=== PATIENT | female | born 1950 | race Native Hawaiian/Other Pacific Islander ===

== ENCOUNTER → 2017-08-31 | Outpatient (CLI) | payer MEDICARE ==
--- NOTE | 2017-08-31 13:15 | MM ---
Reason for exam: screening (asymptomatic). Last mammogram was performed 1 year and 8 months ago. History: Patient is postmenopausal. Benign excisional biopsy of the left breast, 2001. Physical Findings: A clinical breast exam by your physician is recommended on an annual basis and results should be correlated with mammographic findings. MG 3D Screening Mammo W/Cad Bilateral CC and MLO view(s) were taken. Prior study comparison: December 30, 2015, bilateral MG screening mammo w CAD. January 20, 2010, bilateral digital screening mammogram. The breast tissue is heterogeneously dense. This may lower the sensitivity of mammography. There is a stable subcentimeter right middle depth central inner mass. Benign appearing bilateral calcifications. No suspicious abnormality. No significant changes when compared with prior studies. ASSESSMENT: Benign, BI-RAD 2 RECOMMENDATION: Routine screening mammogram of both breasts in 1 year.
== END | disposition home or self-care (01) ==
LOC: RADMAMWWP 10:10
PROVIDERS: ATTEND Family Medicine
DX: Z12.31 Encounter for screening mammogram for malignant neoplasm of breast (principal)
CPT/HCPCS: 77063; 77067

== ENCOUNTER → 2018-09-04 | Outpatient (CLI) | payer MEDICARE ==
--- NOTE | 2018-09-04 14:02 | MM ---
Reason for exam: screening (asymptomatic). Last mammogram was performed 1 year ago. History: Patient is postmenopausal. Benign excisional biopsy of the left breast, 2001. Physical Findings: A clinical breast exam by your physician is recommended on an annual basis and results should be correlated with mammographic findings. MG Screening Mammo w CAD Bilateral CC and MLO view(s) were taken. Prior study comparison: August 31, 2017, bilateral MG 3d screening mammo w/cad. December 30, 2015, bilateral MG screening mammo w CAD. The breast tissue is heterogeneously dense. This may lower the sensitivity of mammography. Finding #1: There is a 5 mm circumscribed round mass located 5 cm from the nipple in the anterior, middle, central position of the right breast. Finding #2: There are typically benign round calcifications in the right breast. ASSESSMENT: Incomplete: need additional imaging evaluation, BI-RAD 0 RECOMMENDATION: Special view mammogram and ultrasound of the right breast. [facility] will attempt to contact patient to return for supplemental views and ultrasound.
== END | disposition home or self-care (01) ==
LOC: RADMAMWWP 09:22
PROVIDERS: ATTEND Family Medicine
DX: Z12.31 Encounter for screening mammogram for malignant neoplasm of breast (principal)
CPT/HCPCS: 77067

== ENCOUNTER → 2018-09-06 | Outpatient (CLI) | payer MEDICARE ==
--- NOTE | 2018-09-07 07:46 | MM ---
Reason for exam: additional evaluation requested from abnormal screening. Last mammogram was performed less than 1 month ago. History: Patient is postmenopausal. Benign excisional biopsy of the left breast, 2001. Physical Findings: Nurse Summary: less than 0.5cm nodule in the right breast at 12 o'clock and 3 o'clock (nurse kp). MG 3D Work Up W/Cad RT Spot compression CC, spot compression MLO, and ML view(s) were taken of the right breast. Prior study comparison: September 04, 2018, bilateral MG screening mammo w CAD. August 31, 2017, bilateral MG 3d screening mammo w/cad. The breast tissue is heterogeneously dense. This may lower the sensitivity of mammography. Finding #1: There is a 5 mm mass located 5 cm from the nipple in the central position of the right breast. Finding #2: There are typically benign calcifications in the right breast. These results were verbally communicated with the patient and result sheet given to the patient on 09/06/18. ASSESSMENT: Incomplete: need additional imaging evaluation, BI-RAD 0 RECOMMENDATION: Ultrasound of the right breast.
--- NOTE | 2018-09-07 07:47 | USB ---
Reason for exam: additional evaluation requested from abnormal screening. History: Patient is postmenopausal. Benign excisional biopsy of the left breast, 2001. US Breast Workup Limited RT Right limited breast ultrasound including focal area of concern, retroareolar and axilla demonstrates a 0.4 x 0.7 x 0.3cm oval, lobular, cystic lesion at 3 o'clock and a 0.4 x 0.3 x 0.4cm oval, lobular, cystic lesion at 3 o'clock. These results were verbally communicated with the patient and result sheet given to the patient on 09/06/18. ASSESSMENT: Probably benign, BI-RAD 3 RECOMMENDATION: Follow-up diagnostic mammogram and ultrasound of the right breast in 6 months.
== END | disposition home or self-care (01) ==
LOC: RADMAMWWP 14:33
PROVIDERS: ATTEND Family Medicine
DX: R92.8 Other abnormal and inconclusive findings on diagnostic imaging of breast (principal)
CPT/HCPCS: 77065; 76642; G0279; 77061

== ENCOUNTER 2018-12-28 05:50 | Emergency (ER) | payer MEDICARE ==
[2018-12-28 05:59] VITALS: TEMP 97.7
[2018-12-28] MEDS ORDERED: SODIUM CHLORIDE 0.9% 500 ML 500 ML IV STA (06:19)
[2018-12-28] MEDS ORDERED: diphenhydrAMINE 50 MG/ML 1 ML VIAL IVP STA (06:29)
[2018-12-28] MEDS ORDERED: METOCLOPRAMIDE 5 MG/ML 2 ML VIAL IVP STA (06:29)
[2018-12-28 06:33] LABS: Basophils % (A) 0 %; Eosinophils # (A) 0.1 k/uL (0-0.7); Eosinophils % (A) 1 %; HCT 42.7 % (34.0-46.0); HGB 14.7 gm/dL (11.4-16.0); Lymphocytes # (A) 3.3 k/uL (1.0-4.8); Lymphocytes % (A) 40 %; MCH 29.6 pg (25.0-35.0); MCHC 34.5 g/dL (31.0-37.0); Mean Platelet Volume 7.1; Monocytes # (A) 0.4 k/uL (0-1.0); Monocytes % (A) 5 %; Neutrophils # (A) 4.2 k/uL (1.3-7.7); Neutrophils % (A) 51 %; Platelet Count 238 k/uL (150-450); RBC 4.97 m/uL (3.80-5.40); RDW 13.6 % (11.5-15.5); WBC 8.2 k/uL (3.8-10.6)
[2018-12-28 06:41] LABS: ALT 20 U/L (9-52); AST 22 U/L (14-36); African American GFR (CKD) >90 (>60 ml/min/1.73 sqM); Albumin 4.3 g/dL (3.5-5.0); Alkaline Phosphatase 93 U/L (38-126); Anion Gap 7 mmol/L; Blood Urea Nitrogen 17 mg/dL (7-17); Calcium 9.2 mg/dL (8.4-10.2); Carbon Dioxide 28 mmol/L (22-30); Chloride 104 mmol/L (98-107); Glucose 99 mg/dL (74-99); Potassium 4.1 mmol/L (3.5-5.1); Sodium 139 mmol/L (137-145); Total Bilirubin 0.8 mg/dL (0.2-1.3); Total Protein 7.4 g/dL (6.3-8.2)
--- NOTE | 2018-12-28 06:44 | ED ---
General Adult HPI - General Source: patient, family, RN notes reviewed Mode of arrival: ambulatory Limitations: language barrier <Hans Owens - Last Filed: 12/28/18 10:17> <Carlito Jon - Last Filed: 12/28/18 16:33> - General Chief complaint: Eye Problems Stated complaint: eye problems Time Seen by Provider: 12/28/18 06:09 - History of Present Illness Initial comments: 68-year-old female presents to the emergency department for a chief complaint of headache. Patient states she has had a headache since about one hour prior to arrival. Patient states that on the right side of her head. States that she has some blackened and blurry vision in her left eye. Denies any other complaints. Denies having similar headaches prior to this. Patient has no other complaints at this time including shortness of breath, chest pain, abdominal pain, nausea or vomiting. (Hans Owens) - Related Data Home Medications Medication Instructions Recorded Confirmed Fluticasone Nasal [place] [Flonase 1 spray EA NOSTRIL DAILY 12/28/18 12/28/18 Nasal [place]] Allergies Allergy/AdvReac Type Severity Reaction Status Date / Time No Known Allergies Allergy Verified 12/28/18 08:12 Review of Systems ROS Other: All systems not noted in ROS Statement are negative. <Hans Owens - Last Filed: 12/28/18 10:17> ROS Other: All systems not noted in ROS Statement are negative. <Carlito Jon - Last Filed: 12/28/18 16:33> ROS Statement: Those systems with pertinent positive or pertinent negative responses have been documented in the HPI. Past Medical History Additional Past Medical History / Comment(s): sinus problems History of Any Multi-Drug Resistant Organisms: None Reported Past Surgical History: Hysterectomy Past Psychological History: No Psychological Hx Reported Smoking Status: Never smoker Past Alcohol Use History: None Reported Past Drug Use History: None Reported <Hans Owens - Last Filed: 12/28/18 10:17> General Exam Limitations: language barrier General appearance: alert, in no apparent distress Head exam: Present: atraumatic, normocephalic, normal inspection Eye exam: Present: normal appearance, PERRL, EOMI. Absent: scleral icterus, conjunctival injection, periorbital swelling Expanded Eyelids: Normal Inspection: Bilateral Pupils: Regular, Round: Bilateral Sclera/Conjunctival: Normal Inspection: Bilateral Visual acuity (R) = 20/: 50 Visual acuity (L) = 20/: 200 With correction: No IOP (R) in mmH IOP (L) in mmH IOP measured with: [place] ENT exam: Present: normal exam, normal oropharynx, mucous membranes moist, TM's normal bilaterally, normal external ear exam Neck exam: Present: normal inspection. Absent: tenderness, meningismus, lymphadenopathy Respiratory exam: Present: normal lung sounds bilaterally. Absent: respiratory distress, wheezes, rales, rhonchi, stridor Cardiovascular Exam: Present: regular rate, normal rhythm, normal heart sounds. Absent: systolic murmur, diastolic murmur, rubs, gallop, clicks Neurological exam: Present: alert, oriented X3, CN II-XII intact, normal gait, other (GCS 15) Expanded Speech: Present: fluid speech Cranial nerves: EOM's Intact: Normal, Tongue Deviation: Normal, Nystagmus: Normal, Facial Sensation: Normal Sensory exam: Upper Extremity Light Touch: Normal, Upper Extremity Pin Prick: Normal, Lower Extremity Light Touch: Normal, Lower Extremity Pin Prick: Normal Motor strength exam: RUE: 5, LUE: 5, RLE: 5, LLE: 5 Eye Response: (4) open spontaneously Motor Response: (6) obeys commands Verbal Response: (5) oriented Pavithra Total: 15 Psychiatric exam: Present: normal affect, normal mood <Hans Owens - Last Filed: 12/28/18 10:17> Course <Carlito Jon - Last Filed: 12/28/18 16:33> Vital Signs 12/28/18 12/28/18 12/28/18 05:53 06:47 07:26 Temperature 97.7 F Pulse Rate 68 69 74 Respiratory 18 18 16 Rate Blood Pressure 164/93 156/92 171/110 O2 Sat by Pulse 100 97 100 Oximetry 12/28/18 10:31 Temperature Pulse Rate 70 Respiratory 16 Rate Blood Pressure 136/75 O2 Sat by Pulse 99 Oximetry - Reevaluation(s) Reevaluation #1: 12/28/18 16:33 PA supervision: I personally did evaluate the patient and do agree with the assessment and plan patient will be referred. (Carlito Jon) Medical Decision Making - Lab Data Result diagrams: 12/28/18 06:23 12/28/18 06:23 <Hans Owens - Last Filed: 12/28/18 10:17> - Lab Data Result diagrams: 12/28/18 06:23 12/28/18 06:23 <Carlito Jon - Last Filed: 12/28/18 16:33> - Medical Decision Making Patient presents for right-sided headache and left-sided visual changes. Vision is blurry and dark and in the left eye. This started around 5 AM this morning. No focal neurologic deficits. Patient is ambulatory without difficulty. CT angiography of the brain and neck was performed which showed no sign of acute stenosis and common or internal carotid arteries bilaterally. No significant stenosis or aneurysmal change at the level of the [place]. CT brain showed no acute intracranial hemorrhage or midline shift. There is mild diffuse age-related cerebral atrophy. CBC and CMP were unremarkable. Glucose was 99. Pressure in the right eye was 10, left eye 11. Usually daily in the right eye is 20/50, left eye is 20/200. Patient give him medicine which completely resolved her headache however her visual disturbance has persisted in the left eye. I discussed this case with Dr llanes who is concerned for possible occlusi on to the left eye. He recommends sending patient to the office straightaway. I discussed it with her son as well as her and they are agreeable to this plan and will go directly to his office. Directions were given. Patient will not be driving. Dr. Jon also evaluated the patient. (Hans Owens) - Lab Data Lab Results 12/28/18 12/28/18 12/28/18 Range/Units 06:23 06:23 06:23 WBC 8.2 (3.8-10.6) k/uL RBC 4.97 (3.80-5.40) m/uL Hgb 14.7 (11.4-16.0) gm/dL Hct 42.7 (34.0-46.0) % MCV 86.0 (80.0-100.0) fL MCH 29.6 (25.0-35.0) pg MCHC 34.5 (31.0-37.0) g/dL RDW 13.6 (11.5-15.5) % Plt Count 238 (150-450) k/uL Neutrophils % 51 % Lymphocytes % 40 % Monocytes % 5 % Eosinophils % 1 % Basophils % 0 % Neutrophils # 4.2 (1.3-7.7) k/uL Lymphocytes # 3.3 (1.0-4.8) k/uL Monocytes # 0.4 (0-1.0) k/uL Eosinophils # 0.1 (0-0.7) k/uL Basophils # 0.0 (0-0.2) k/uL PT 10.0 (9.0-12.0) sec INR 0.9 (<1.2) APTT 25.9 (22.0-30.0) sec Sodium 139 (137-145) mmol/L Potassium 4.1 (3.5-5.1) mmol/L Chloride 104 (98-107) mmol/L Carbon Dioxide 28 (22-30) mmol/L Anion Gap 7 mmol/L BUN 17 (7-17) mg/dL Creatinine 0.67 (0.52-1.04) mg/dL Est GFR (CKD-EPI)AfAm >90 (>60 ml/min/1.73 sqM) Est GFR (CKD-EPI)NonAf >90 (>60 ml/min/1.73 sqM) Glucose 99 (74-99) mg/dL Calcium 9.2 (8.4-10.2) mg/dL Total Bilirubin 0.8 (0.2-1.3) mg/dL AST 22 (14-36) U/L ALT 20 (9-52) U/L Alkaline Phosphatase 93 (38-126) U/L Total Protein 7.4 (6.3-8.2) g/dL Albumin 4.3 (3.5-5.0) g/dL Disposition Is patient prescribed a controlled substance at d/c from ED?: No Time of Disposition: 10:16 <Hans Owens - Last Filed: 12/28/18 10:17> <Carlito Jon - Last Filed: 12/28/18 16:33> Clinical Impression: Visual changes Disposition: HOME SELF-CARE Additional Instructions: Please go directly to [facility] across from [facility] to see Dr Llanes. Return for any worsening symptoms. Referrals: George Arciniega MD [Primary Care Provider] - 1-2 days Kannan Silva MD [STAFF PHYSICIAN] - 1-2 days
[2018-12-28 06:45] LABS: INR 0.9 (<1.2); Partial Thromboplastin Time 25.9 sec (22.0-30.0)
[2018-12-28 07:30] VITALS: RESP 16
--- NOTE | 2018-12-28 07:36 | CT ---
EXAMINATION TYPE: CT brain wo con DATE OF EXAM: 12/28/2018 HISTORY: CODE STROKE, headache with blurry vision. CT DLP: Not available at time of JUANIS mGycm. Automated Exposure Control for Dose Reduction was Utiliz ed. TECHNIQUE: CT scan of the head is performed without contrast. COMPARISON: None. FINDINGS: There is no acute intracranial hemorrhage or midline shift identified. There is diffuse v entricular and sulcal prominence consistent with diffuse age-related cerebral atrophy. Andujar-white mat ter differentiation is fairly well preserved. Scattered parenchymal calcifications are noted bilatera lly and nonspecific, differential includes in utero infection. The globes are intact and the visualiz ed sinuses are clear. IMPRESSION: No acute intracranial hemorrhage or midline shift. There is mild diffuse age-related ce rebral atrophy and scattered parenchymal calcifications.
[2018-12-28] MEDS ORDERED: MORPHINE SULFATE 4 MG/ML SYRINGE IVP STA (08:39)
--- NOTE | 2018-12-28 08:41 | CT ---
EXAMINATION TYPE: CT angio head neck DATE OF EXAM: 12/28/2018 HISTORY: Headache and blurred vision since 0500; CODE STROKE COMPARISON: NONE CT DLP: 1521.10 mGycm. Automated Exposure Control for Dose Reduction was Utilized. TECHNIQUE: CTA scan of the head and neck are performed without and with IV Contrast, patient injecte d with 65 ml Isovue mL of Isovue 370, axial images are obtained, coronal and sagittal reformatted victor manuel ges are reviewed. Three-D reconstructed images are created on an independent workstation and reviewed . FINDINGS: Carotid/Vascular Structures: There is bovine type arch which is normal variant. Right common carotid artery shows normal origin from right brachiocephalic artery. There is no significant plaque or steno sis in either common or internal carotid arteries including a level carotid bulbs. There is tortuous medial course to the bilateral common carotid arteries. There are patent bilateral external carotid a rteries without significant plaque or stenosis. There is codominant vertebrobasilar system. Vertebral arteries are patent to basilar junction. There are hypoplastic bilateral posterior communicating arteries. No significant focal stenosis or aneurysm al change is seen. Images of the anterior circulation show absent right A1 segment with filling of A2 segment due to pat ent anterior communicating artery. No aneurysmal change is seen. Other: No incidental suspicious findings seen. Some motion artifact degradation is present. IMPRESSION: 1. No significant stenosis in common or internal carotid arteries bilaterally. 2. No significant stenosis or aneurysmal change at the level of the [place].
[2018-12-28 10:33] VITALS: BP 136/75; PULSE 70
== END 2018-12-28 10:33 | disposition home or self-care (01) ==
LOC: EC 05:50
DX: H53.8 Other visual disturbances (principal); Z79.51 Long term (current) use of inhaled steroids
CPT/HCPCS: 36415; 80053; 85025; 85610; 85730; 70496; 70450; 70498; 99284; 96374; 96375 ×2; J2270; J1200; J2765; Q9967

== ENCOUNTER → 2019-03-28 | Outpatient (CLI) | payer MEDICARE ==
--- NOTE | 2019-03-28 09:59 | MM ---
Reason for exam: follow-up at short interval from prior study. Last mammogram was performed 7 months ago. History: Patient is postmenopausal. Benign excisional biopsy of the left breast, 2001. Physical Findings: Nurse did not find any significant physical abnormalities on exam. MG 3D Diag Mammo W/Cad DILCIA Bilateral CC and MLO view(s) were taken. Prior study comparison: September 06, 2018, right breast MG 3d work up w/cad RT. September 04, 2018, bilateral MG screening mammo w CAD. August 31, 2017, bilateral MG 3d screening mammo w/cad. December 30, 2015, bilateral MG screening mammo w CAD. The breast tissue is heterogeneously dense. This may lower the sensitivity of mammography. Finding: There is a typically benign 5.3 mm mass located 5 cm from the nipple in the lower inner quadrant, middle position of the right breast, may be slightly larger over time. No significant changes in finding since September 06, 2018, September 04, 2018, August 31, 2017, and December 30, 2015. These results were verbally communicated with the patient and result sheet given to the patient on 03/28/19. ASSESSMENT: Incomplete: need additional imaging evaluation, BI-RAD 0 RECOMMENDATION: Ultrasound of the right breast.
--- NOTE | 2019-03-28 10:01 | USB ---
Reason for exam: follow-up at short interval from prior study. History: Patient is postmenopausal. Benign excisional biopsy of the left breast, 2001. US Breast Limited RT Right limited breast ultrasound including focal area of concern, retroareolar and axilla demonstrates a 0.4 x 0.4 x 0.5cm cystic lesion at 3 o'clock and a 0.4 x 0.3 x 0.3cm cystic lesion at 3 o'clock. These results were verbally communicated with the patient and result sheet given to the patient on 03/28/19. ASSESSMENT: Probably benign, BI-RAD 3 RECOMMENDATION: Follow-up diagnostic mammogram of both breasts in 6 months. Ultrasound of the right breast in 6 months. Back on schedule for August 2019.
== END | disposition home or self-care (01) ==
LOC: RADMAMWWP 07:35
PROVIDERS: ATTEND Family Medicine
DX: R92.8 Other abnormal and inconclusive findings on diagnostic imaging of breast (principal)
CPT/HCPCS: 77062; 77066

== ENCOUNTER → 2020-02-08 | Outpatient (CLI) | payer MEDICARE ==
--- NOTE | 2020-02-11 08:25 | MM ---
Reason for exam: follow-up at short interval from prior study. Last mammogram was performed 10 months ago. History: Patient is postmenopausal. Benign excisional biopsy of the left breast, 2001. Physical Findings: Nurse did not find any significant physical abnormalities on exam. MG 3D Diag Mammo W/Cad DILCIA Bilateral CC and MLO view(s) were taken. Prior study comparison: March 28, 2019, bilateral MG 3d diag mammo w/cad DILCIA. September 06, 2018, right breast MG 3d work up w/cad RT. There are scattered fibroglandular densities. There is chronic nodularity in the right breast. No significant new findings when compared with previous films. These results were verbally communicated with the patient and result sheet given to the patient on 02/08/20. ASSESSMENT: Benign, BI-RAD 2 RECOMMENDATION: Routine screening mammogram of both breasts in 1 year.
== END | disposition home or self-care (01) ==
LOC: RADMAMWWP 14:43
PROVIDERS: ATTEND Family Medicine
DX: R92.8 Other abnormal and inconclusive findings on diagnostic imaging of breast (principal)
CPT/HCPCS: 77066; G0279; 77062

== ENCOUNTER → 2021-03-09 | Outpatient (CLI) | payer MEDICARE ==
--- NOTE | 2021-03-09 11:21 | MM ---
Reason for exam: screening (asymptomatic). Last mammogram was performed 1 year and 1 month ago. History: Patient is postmenopausal. Benign excisional biopsy of the left breast, 2001. Physical Findings: A clinical breast exam by your physician is recommended on an annual basis and results should be correlated with mammographic findings. MG 3D Screening Mammo W/Cad Bilateral CC and MLO view(s) were taken. Prior study comparison: February 08, 2020, bilateral MG 3d diag mammo w/cad DILCIA. March 28, 2019, bilateral MG 3d diag mammo w/cad DILCIA. There are scattered fibroglandular densities. There are benign appearing round, vascular calcifications bilaterally. There is no discrete abnormality. ASSESSMENT: Benign, BI-RAD 2 RECOMMENDATION: Routine screening mammogram of both breasts in 1 year.
== END | disposition home or self-care (01) ==
LOC: RADMAMWWP 09:45 → EEVIPCON 10:00
PROVIDERS: ATTEND Family Medicine
DX: Z12.31 Encounter for screening mammogram for malignant neoplasm of breast (principal); Z78.0 Asymptomatic menopausal state
CPT/HCPCS: 77063; 77067

== ENCOUNTER → 2023-05-26 | Outpatient (CLI) | payer MEDICARE ==
--- NOTE | 2023-05-27 08:49 | MM ---
Reason for Exam: Screening (asymptomatic). Last screening mammogram was performed 12 month(s) ago. Patient History: Menarche at age 12. First Full-Term at age 16. Hysterectomy at age 39. Postmenopausal. 2001, Benign Excisional Biopsy on the left side. Risk Values: Yesi 5 year model risk: 1.0%. NCI Lifetime model risk: 2.5%. Prior Study Comparison: 08/31/2017 Bilateral Screening Mammogram, [facility]. 09/04/2018 Bilateral Screening Mammogram, [facility]. 09/06/2018 Right Diagnostic Mammogram, [facility]. 03/28/2019 Bilateral Diagnostic Mammogram, [facility]. 02/08/2020 Bilateral Diagnostic Mammogram, [facility]. 03/09/2021 Bilateral Screening Mammogram, [facility]. 05/21/2022 Bilateral MG 3D screening mammo w/cad, [facility]. Tissue Density: The breasts are heterogeneously dense, which may obscure small masses. Findings: Analyzed By CAD. There is no suspicious group of microcalcifications or new suspicious mass in either breast. Overall Assessment: Benign, BI-RAD 2 Management: Screening Mammogram of both breasts in 1 year. . Patient should continue monthly self-breast exams. A clinical breast exam by your physician is recommended on an annual basis. This exam should not preclude additional follow-up of suspicious palpable abnormalities. Note on Yesi scores and lifetime risk: 1. A Yesi score greater than 3% is considered moderate risk. If this is the case, consider specialist referral to assess eligibility for a risk reducing agent. 2. If overall lifetime risk for the development of breast cancer is 20% or higher, the patient may qualify for future screening with alternating mammogram and breast MRI. Electronically signed and approved by: Declan Loya M.D. Radiologis
== END | disposition home or self-care (01) ==
LOC: RADMAMWWP 11:01
PROVIDERS: ATTEND Family Medicine
DX: Z12.31 Encounter for screening mammogram for malignant neoplasm of breast (principal); Z78.0 Asymptomatic menopausal state
CPT/HCPCS: 77063; 77067

== ENCOUNTER 2023-07-26 11:39 | Observation (INO) | payer MEDICARE ==
--- NOTE | 2023-07-26 12:56 | ED ---
Chest Pain HPI - General Chief Complaint: Chest Pain Stated Complaint: Chest pain Time Seen by Provider: 07/26/23 11:55 Source: patient, RN notes reviewed Mode of arrival: wheelchair Limitations: language barrier (Used manager mechanical) - History of Present Illness Initial Comments: 72-year-old female presents emergency department chief complaint of chest pain. Patient sent in by PCP as she states she has been fatigued the last couple weeks but developed chest pain she describes as central chest pain no change in her chronic back issues. She does admit to hypertension and states that she has been borderline diabetic. Patient states she has some shortness of breath but not worse than usual no fevers or chills no cough cold symptoms no diaphoretic episodes no nausea vomiting. - Related Data Home Medications Medication Instructions Recorded Confirmed Fluticasone Nasal [place] [Flonase 1 spray EA NOSTRIL DAILY PRN 12/23/20 07/26/23 Nasal [place]] Montelukast [Singulair] 10 mg PO HS 12/23/20 07/26/23 Cetirizine HCl [Zyrtec] 10 mg PO DAILY 07/26/23 07/26/23 Niacinamide B-3 100mg 100 mg PO DAILY 07/26/23 07/26/23 amLODIPine [Norvasc] 5 mg PO DAILY 07/26/23 07/26/23 Allergies Allergy/AdvReac Type Severity Reaction Status Date / Time No Known Allergies Allergy Verified 07/26/23 12:10 Review of Systems ROS Statement: Those systems with pertinent positive or pertinent negative responses have been documented in the HPI. ROS Other: All systems not noted in ROS Statement are negative. EKG Findings - EKG Comments: EKG Findings:: EKG performed at 11: 57 sinus rhythm with rate 98 WI 170 QRS 81 QT/QTc 350/405 - EKG Results: EKG: interpreted by ERMD Past Medical History Past Medical History: Hypertension Additional Past Medical History / Comment(s): sinus problems History of Any Multi-Drug Resistant Organisms: None Reported Past Surgical History: Hysterectomy Additional Past Surgical History / Comment(s): eye surgery, ovaries removed Past Psychological History: No Psychological Hx Reported Smoking Status: Never smoker Past Alcohol Use History: None Reported Past Drug Use History: None Reported General Exam Limitations: language barrier General appearance: alert, in no apparent distress Head exam: Present: atraumatic, normocephalic, normal inspection Eye exam: Present: normal appearance, PERRL, EOMI. Absent: scleral icterus, conjunctival injection, periorbital swelling ENT exam: Present: normal exam, mucous membranes moist Neck exam: Present: normal inspection, full ROM. Absent: tenderness, meningismus, lymphadenopathy Respiratory exam: Present: normal lung sounds bilaterally. Absent: respiratory distress, wheezes, rales, rhonchi, stridor Cardiovascular Exam: Present: regular rate, normal rhythm, normal heart sounds. Absent: systolic murmur, diastolic murmur, rubs, gallop, clicks GI/Abdominal exam: Present: soft, normal bowel sounds. Absent: distended, tenderness, guarding, rebound, rigid Neurological exam: Present: alert, oriented X3 Skin exam: Present: warm, dry, intact, normal color. Absent: rash Course Vital Signs 07/26/23 07/26/23 11:41 14:11 Temperature 97.8 F Pulse Rate 60 99 Respiratory 18 16 Rate Blood Pressure 141/83 130/86 O2 Sat by Pulse 98 95 Oximetry Chest Pain MDM - MDM Was pt. sent in by a medical professional or institution (, PA, CITY SUPERVISOR, urgent care, hospital, or half-way...) When possible be specific @ -No Did you speak to anyone other than the patient for history (EMS, parent, family, police, friend...)? What history was obtained from this source @ -No Did you review nursing and triage notes (agree or disagree)? Why? @ -I reviewed and agree with nursing and triage notes Were old charts reviewed (outside hosp., previous admission, EMS record, old EKG, old radiological studies, urgent care reports/EKG's, half-way records)? Report findings @ -No old charts were reviewed Differential Diagnosis (chest pain, altered mental status, abdominal pain women, abdominal pain men, vaginal bleeding, weakness, fever, dyspnea, syncope, headache, dizziness, GI bleed, back pain, seizure, CVA, palpatations, mental health, musculoskeletal)? @ -Differential Chest Pain: Stable Angina, Unstable Angina, STEMI, NSTEMI Aortic Dissection, Pneumothorax, Musculoskeletal, Esophageal Spasm GERD, Cholecystitis, Pancreatitis, Zoster, this is not meant to be an all-inclusive list. EKG interpreted by me (3pts min.). @ -As above X-rays interpreted by me (1pt min.). @ -Chest x-ray shows no acute cardiopulmonary process CT interpreted by me (1pt min.). @ -None done U/S interpreted by me (1pt. min.). @ -None done What testing was considered but not performed or refused? (CT, X-rays, U/S, labs)? Why? @ -None What meds were considered but not given or refused? Why? @ -None Did you discuss the management of the patient with other professionals (professionals i.e. , PA, CITY SUPERVISOR, lab, RT, psych nurse, social media community manager, route jumper, teacher, recreation officer, director of casework department)? Give summary @ -Dr. Sousa for admission for chest pain rule out Was smoking cessation discussed for >3mins.? @ -No Was critical care preformed (if so, how long)? @ -No Were there social determinants of health that impacted care today? How? (Homelessness, low income, unemployed, alcoholism, drug addiction, transportation, low edu. Level, literacy, decrease access to med. care, [facility], rehab)? @ -No Was there de-escalation of care discussed even if they declined (Discuss DNR or withdrawal of care, Hospice)? DNR status @ -No What co-morbidities impacted this encounter? (DM, HTN, Smoking, COPD, CAD, Cancer, CVA, ARF, Chemo, Hep., AIDS, mental health diagnosis, sleep apnea, morbid obesity)? @ -Hypertension Was patient admitted / discharged? Hospital course, mention meds given and route, prescriptions, significant lab abnormalities, going to OR and other pertinent info. @ -Admitted patient presented for chest pain initial workup was negative patient will be admitted for cardiac rule out including cardiac cardiology evaluation echocardiogram Undiagnosed new problem with uncertain prognosis? @ -No Drug Therapy requiring intensive monitoring for toxicity (Heparin, Nitro, Insulin, Cardizem)? @ -No Were any procedures done? @ -No Diagnosis/symptom? @ -Chest pain Acute, or Chronic, or Acute on Chronic? @ -Acute Uncomplicated (without systemic symptoms) or Complicated (systemic symptoms)? @ -Complicated Side effects of treatment? @ -No Exacerbation, Progression, or Severe Exacerbation? @ -No Poses a threat to life or bodily function? How? (Chest pain, [place], PA, pneumonia, PE, COPD, DKA, ARF, appy, cholecystitis, CVA, Diverticulitis, Homicidal, Suicidal, threat to staff... and all critical care pts) @ -Yes possible ACS Disposition Clinical Impression: Chest pain Disposition: ADMITTED IP TO THIS HOSP Condition: Fair Time of Disposition: 15:03
[2023-07-26 13:39] LABS: Basophils # (A) 0.1 k/uL (0-0.2); Basophils % (A) 1 %; Eosinophils # (A) 0.1 k/uL (0-0.7); Eosinophils % (A) 2 %; HCT 43.6 % (34.0-46.0); HGB 14.7 gm/dL (11.4-16.0); Lymphocytes % (A) 42 %; MCH 30.1 pg (25.0-35.0); MCHC 33.6 g/dL (31.0-37.0); MCV 89.5 fL (80.0-100.0); Mean Platelet Volume 8.5; Monocytes # (A) 0.4 k/uL (0-1.0); Monocytes % (A) 5 %; Neutrophils # (A) 3.4 k/uL (1.3-7.7); Neutrophils % (A) 48 %; Platelet Count 265 k/uL (150-450); RBC 4.87 m/uL (3.80-5.40); RDW 13.3 % (11.5-15.5); WBC 7.1 k/uL (3.8-10.6)
[2023-07-26 13:49] LABS: Partial Thromboplastin Time 23.6 sec (22.0-30.0); Prothrombin Time 10.8 sec (10.0-12.5)
[2023-07-26] MEDS: ASPIRIN 81 MG PO STA (14:07)
--- NOTE | 2023-07-26 14:23 | XR ---
EXAMINATION TYPE: XR chest 2V DATE OF EXAM: 07/26/2023 COMPARISON: 12/23/2020 HISTORY: 71-year-old female with chest pain TECHNIQUE: AP and lateral views FINDINGS: Heart upper limits of normal in size. Aorta and pulmonary vasculature are within normal limits. Hazy lung densities related to overlying soft tissue. No consolidation or pleural effusion. Mild superior endplate deformity near the thoracolumbar junction is indeterminate but new from 2020. IMPRESSION: No acute cardiopulmonary process. A mild superior end plate deformity near the thoracolumbar junction is age indeterminate but new from 2020. Clinically correlate.
[2023-07-26 14:24] LABS: ALT 38 U/L (4-34); AST 42 U/L (14-36); African American GFR (CKD) >90 (>60 ml/min/1.73 sqM); Albumin 3.7 g/dL (3.5-5.0); Alkaline Phosphatase 122 U/L (38-126); Anion Gap 8 mmol/L; Blood Urea Nitrogen 13 mg/dL (7-17); Calcium 9.6 mg/dL (8.4-10.2); Carbon Dioxide 22 mmol/L (22-30); Chloride 105 mmol/L (98-107); Glucose 205 mg/dL (74-99); Magnesium 1.5 mg/dL (1.6-2.3); Non-African American GFR(CKD) >90 (>60 ml/min/1.73 sqM); Potassium 3.6 mmol/L (3.5-5.1); Sodium 135 mmol/L (137-145); Total Bilirubin 0.8 mg/dL (0.2-1.3); Total Protein 6.6 g/dL (6.3-8.2)
[2023-07-26 14:30] LABS: NT-Pro-B-Type Natriuretic Pept 37 pg/mL
[2023-07-26] MEDS ORDERED: NITROGLYCERIN SL TABS 0.4 MG TAB SUBLINGUAL PRN (15:03)
--- NOTE | 2023-07-26 18:14 | P.HPIM ---
History of Present Illness H&P Date: 07/26/23 Patient is a 72-year-old [place]-speaking female with history of hypertension, allergic rhinitis presenting with chest pain. Son is in the room to translate. Over the last couple of days she has been experiencing some congestion and cold. Today she started experiencing left-sided chest pain which she has never experienced before, unable to see how bad or able to describe what kind of pain she was having. However, pain has not resolved. She denies any shortness of breath, cough, abdominal pain, nausea, vomiting, urinary or bowel complaints. Her father had history of pacemaker placement, unsure if any other heart attacks or other heart disease within the family. She denies any smoking, alcohol use or illicit drug use. In the ED, temperature was 97.8, pulse 60, respiratory 18, blood pressure 141/83, saturating at 98% on room air. WBC 7.1, hemoglobin 14.7, platelet 265, sodium 135, potassium 3.6, creatinine 0.59, glucose 205, magnesium 1.5, AST 42, ALT 38, ALP 122, troponin negative, proBNP 37. EKG independently interpreted, shows normal sinus rhythm. Chest x-ray independently interpreted, shows no obvious opacities, report mention mild superior endplate deformity near the thoracolumbar junction new from 2020. Patient admitted for further chest pain workup. Cardiology consulted. Pertinent positives and negatives as discussed in HPI, a complete review of syst ems was performed and all other systems are negative. Patient seen and examined at bedside. Vital signs reviewed General: nontoxic, no distress, appears at stated age, obese Derm: warm, dry Head: atraumatic, normocephalic, symmetric Eyes: EOMI, no lid lag, anicteric sclera, pupils equal round reactive to light ENT: Nose and ears atraumatic Neck: No thyromegaly, supple Mouth: no lip lesion, mucus membranes moist Cardiovascular: S1S2 reg, no murmur, no edema Lungs: clear to auscultation bilateral, no rhonchi, no rales, no wheeze, no accessory muscle use Abdominal: soft, nontender to palpation, no guarding, no appreciable organomegaly Ext: no gross muscle atrophy, muscle strength muscle strength 5 out of 5 in all 4 extremities, no contractures Neuro: CN II-XII grossly intact Psych: Alert, oriented, appropriate affect Assessment/Plan: Active: Chest pain rule out ACS -Continue aspirin 81 mg daily -Repeat troponin -Lipid panel pending -A1c pending -Echocardiogram pending -Continue on telemetry -Cardiology consulted, pending recommendations Hypertension -Continue amlodipine 5 mg daily Hypomagnesemia -1 g IV magnesium sulfate given Transaminitis -No right upper quadrant pain -Continue to monitor, repeat CMP tomorrow Chronic: Allergic rhinitis The patient is admitted with an anticipated less than 2 midnight stay as observation status for evaluation of chest pain. Surrogate decision-maker: Daughter CODE STATUS: Full code DVT prophylaxis: Lovenox Anticipated discharge date: Pending clinical course Anticipated discharge place: Pending clinical course A total of 55 minutes was spent on the care of this complex patient more than 50% of the time was spent in counseling and care coordination. Past Medical History Past Medical History: Hypertension Additional Past Medical History / Comment(s): sinus problems History of Any Multi-Drug Resistant Organisms: None Reported Past Surgical History: Hysterectomy Additional Past Surgical History / Comment(s): eye surgery, ovaries removed Past Psychological History: No Psychological Hx Reported Smoking Status: Never smoker Past Alcohol Use History: None Reported Past Drug Use History: None Reported Medications and Allergies Home Medications Medication Instructions Recorded Confirmed Type Fluticasone Nasal [place] [Flonase 1 spray EA NOSTRIL DAILY PRN 12/23/20 07/26/23 History Nasal [place]] Montelukast [Singulair] 10 mg PO HS 12/23/20 07/26/23 History Cetirizine HCl [Zyrtec] 10 mg PO DAILY 07/26/23 07/26/23 History Niacinamide B-3 100mg 100 mg PO DAILY 07/26/23 07/26/23 History amLODIPine [Norvasc] 5 mg PO DAILY 07/26/23 07/26/23 History Allergies Allergy/AdvReac Type Severity Reaction Status Date / Time No Known Allergies Allergy Verified 07/26/23 12:10 Physical Exam Vitals: Vital Signs Temp Pulse Resp BP Pulse Ox 07/26/23 14:11 99 16 130/86 95 07/26/23 11:41 97.8 F 60 18 141/83 98 Intake and Output 07/26/23 07/26/23 07/26/23 06:59 14:59 22:59 Other: Weight 75.75 kg Results CBC & Chem 7: 07/26/23 13:32 07/26/23 13:32 Labs: Abnormal Lab Results - Last 24 Hours (Table) 07/26/23 Range/Units 13:32 Sodium 135 L (137-145) mmol/L Glucose 205 H (74-99) mg/dL Magnesium 1.5 L (1.6-2.3) mg/dL AST 42 H (14-36) U/L ALT 38 H (4-34) U/L
[2023-07-26] MEDS: MONTELUKAST 10 MG TAB PO SCH (19:45)
[2023-07-26] MEDS: MAGNESIUM SULFATE-D5W PMX 1 GM in DEXTROSE/WATER 1 100ML.BAG IVPB ONE (20:26)
[2023-07-26 21:32] LABS: Partial Thromboplastin Time 23.7 sec (22.0-30.0); Prothrombin Time 10.7 sec (10.0-12.5)
[2023-07-26] MEDS: HEPARIN SODIUM 1,000 UN/ML (10ML VL) IV ONE (21:48)
[2023-07-26] MEDS: HEPARIN SOD,PORK IN 0.45% NACL 25,000 UNIT in 0.45% NACL 1 250ML.BAG IV SCH (21:49)
[2023-07-26] MEDS: DILTIAZEM DRIP BOLUS FROM BAG 1 MG SOLN IV ONE (21:49)
[2023-07-26] MEDS: DILTIAZEM 125 MG in SODIUM CHLORIDE 0.9% 100 ML IV SCH (21:49)
[2023-07-27 03:51] LABS: Partial Thromboplastin Time 35.6 sec (22.0-30.0); Prothrombin Time 10.7 sec (10.0-12.5)
[2023-07-27] MEDS: HEPARIN SODIUM 1,000 UN/ML (10ML VL) IV PRN (04:05)
[2023-07-27 08:34] LABS: Basophils # (A) 0.04 X 10*3/uL (0.00-0.10); Basophils % (A) 0.5 %; Eosinophils # (A) 0.08 X 10*3/uL (0.04-0.35); Eosinophils % (A) 1.1 %; HCT 38.1 % (37.2-46.3); HGB 13.7 g/dL (12.0-15.0); Lymphocytes # (A) 3.42 X 10*3/uL (0.90-5.00); Lymphocytes % (A) 46.8 %; MCH 31.1 pg (27.0-32.0); MCV 86.6 FL (80.0-97.0); Mean Platelet Volume 11.7 FL (9.5-12.2); Monocytes # (A) 0.57 X 10*3/uL (0.20-1.00); Monocytes % (A) 7.8 %; NRBC Per 100 WBC 0 X 10*3/uL (0.00-0.01); Neutrophils # (A) 3.18 X 10*3/uL (1.80-7.70); Neutrophils % (A) 43.7 %; Platelet Count 261 X 10*3/uL (140-440); RDW 13.8 % (11.5-14.5)
--- NOTE | 2023-07-27 08:40 | P.CRDCN ---
History of Present Illness History of present illness: HISTORY OF PRESENT ILLNESS: This is a 72-year-old female with a past medical history significant for hypertension. Patient does not follow with a waistband setter lockstitch. We have been asked to see the patient in consultation for chest pain. Patient examined at the bedside. Patient does not speak [place]. Her family is present who speaks Pakistani and is able to translate for the patient. The patient presented to the hospital to chief complaint of chest pain for the past couple days. She denied any shortness of breath. Denied any palpitations. Patient did go into atrial fibrillation with RVR yesterday. She was started on IV heparin and IV Cardizem. She has since converted to sinus mechanism and is maintaining sinus mechanism this morning. She denies any history of atrial fibrillation. She denies any alcohol use or smoking. DIAGNOSTICS: - EKG reveals sinus mechanism with no signs of acute ischemia. Repeat EKG performed revealed A-fib with RVR. - Chest xray no acute cardiopulmonary process.. - Laboratory data: WBC 7.30. Hemoglobin 13.7. Platelet count 261. Sodium 135. Potassium 3.6. BUN 13. Creatinine 0.59. Troponin negative x 3. AST 42. ALT 38. - Current home cardiac medications include amlodipine 5 mg daily. REVIEW OF SYSTEMS: At the time of my exam: CONSTITUTIONAL: Denies fever or chills. HEENT: Denies blurred vision, vision changes, or eye pain. Denies hemoptysis CARDIOVASCULAR: Denies chest pain. Denies orthopnea. Denies PND. Denies palpitations RESPIRATORY: Denies shortness of breath. GASTROINTESTINAL: Denies abdominal pain. Denies nausea or vomiting. HEMATOLOGIC: Denies bleeding disorders. GENITOURINARY: Denies any blood in urine. SKIN: Denies pruitis. Denies rash. PHYSICAL EXAM: VITAL SIGNS: Reviewed. GENERAL: Well-developed in no acute distress. HEENT: Head is normocephalic. Pupils are equal, round. Sclerae anicteric. Mucous membranes of the mouth are moist. Neck supple. No JVD or thyromegaly LUNGS: Respirations even and unlabored. Lungs essentially clear to auscultation bilaterally. HEART: Regular rate and rhythm. S1 and S2 heard. ABDOMEN: Soft. Nondistended. Nontender. EXTREMITIES: Normal range of motion. No clubbing or cyanosis. Peripheral pulses intact. No lower extremity edema NEUROLOGIC: Awake and alert. Oriented x 3. ASSESSMENT: Chest pain, troponin negative x 3 New onset paroxysmal atrial fibrillation with RVR, currently maintaining sinus mechanism Hypertension Obesity: BMI 31.6 PLAN: An acute coronary but has been ruled out Obtain 2D echo to assess cardiac structure and function Discontinue IV Cardizem and IV heparin Begin Eliquis 5 mg twice a day Begin metoprolol tartrate 25 mg twice a day Check TSH Will plan for outpatient stress testing if echo does not reveal any significant abnormalities Further recommendations pending patient course Nurse practitioner note has been reviewed by physician. Signing provider agrees with the documented findings, assessment, and plan of care documented by PNEUMATIC TOOL OPERATOR as a scribe. Past Medical History Past Medical History: Hypertension Additional Past Medical History / Comment(s): sinus problems History of Any Multi-Drug Resistant Organisms: None Reported Past Surgical History: Hysterectomy Additional Past Surgical History / Comment(s): eye surgery, ovaries removed Past Psychological History: No Psychological Hx Reported Smoking Status: Never smoker Past Alcohol Use History: None Reported Past Drug Use History: None Reported Medications and Allergies Home Medications Medication Instructions Recorded Confirmed Type Fluticasone Nasal [place] [Flonase 1 spray EA NOSTRIL DAILY PRN 12/23/20 07/26/23 History Nasal [place]] Montelukast [Singulair] 10 mg PO HS 12/23/20 07/26/23 History Cetirizine HCl [Zyrtec] 10 mg PO DAILY 07/26/23 07/26/23 History Niacinamide B-3 100mg 100 mg PO DAILY 07/26/23 07/26/23 History amLODIPine [Norvasc] 5 mg PO DAILY 07/26/23 07/26/23 History Allergies Allergy/AdvReac Type Severity Reaction Status Date / Time No Known Allergies Allergy Verified 07/26/23 12:10 Physical Exam Vitals: Vital Signs Temp Pulse Pulse Resp BP BP BP 07/27/23 07:00 98.1 F 53 L 15 111/66 07/27/23 03:04 98.3 F 98 16 108/63 07/26/23 21:52 121/73 07/26/23 21:47 153 H 129/80 07/26/23 19:41 97.7 F 63 16 126/80 07/26/23 17:06 97.8 F 86 17 131/80 07/26/23 14:11 99 16 130/86 07/26/23 11:41 97.8 F 60 18 141/83 Pulse Ox 07/27/23 07:00 92 L 07/27/23 03:04 94 L 07/26/23 21:52 07/26/23 21:47 07/26/23 19:41 93 L 07/26/23 17:06 96 07/26/23 14:11 95 07/26/23 11:41 98 Intake and Output 07/26/23 07/27/23 07/27/23 22:59 06:59 14:59 Intake Total 56.51 Balance 56.51 Intake: Intake, IV Titration 56.51 Amount Heparin Sod,Pork in 0.45% 56.51 NaCl 25,000 unit In 0.45 % NaCl 1 250ml.bag @ 12 UNITS/KG/HR 9.09 mls/hr IV .Q24H [facility] Rx#: [id number] Other: # Voids 1 1 Weight 75.75 kg Results 07/27/23 02:57 07/26/23 13:32 Cardiac Enzymes 07/26/23 07/26/23 07/26/23 Range/Units 13:32 13:32 17:00 AST 42 H (14-36) U/L Troponin I <0.012 <0.012 (0.000-0.034) ng/mL 07/26/23 Range/Units 20:13 AST (14-36) U/L Troponin I <0.012 (0.000-0.034) ng/mL Coagulation 07/26/23 07/26/23 07/27/23 Range/Units 13:32 21:08 02:57 PT 10.8 10.7 10.7 (10.0-12.5) sec APTT 23.6 23.7 35.6 H (22.0-30.0) sec CBC 07/26/23 Range/Units 13:32 WBC 7.1 (3.8-10.6) k/uL RBC 4.87 (3.80-5.40) m/uL Hgb 14.7 (11.4-16.0) gm/dL Hct 43.6 (34.0-46.0) % Plt Count 265 (150-450) k/uL Comprehensive Metabolic Panel 07/26/23 Range/Units 13:32 Sodium 135 L (137-145) mmol/L Potassium 3.6 (3.5-5.1) mmol/L Chloride 105 (98-107) mmol/L Carbon Dioxide 22 (22-30) mmol/L BUN 13 (7-17) mg/dL Creatinine 0.59 (0.52-1.04) mg/dL Glucose 205 H (74-99) mg/dL Calcium 9.6 (8.4-10.2) mg/dL AST 42 H (14-36) U/L ALT 38 H (4-34) U/L Alkaline Phosphatase 122 (38-126) U/L Total Protein 6.6 (6.3-8.2) g/dL Albumin 3.7 (3.5-5.0) g/dL Current Medications Generic Name Dose Route Start Last Admin Trade Name Freq PRN Reason Stop Dose Admin Amlodipine Besylate 5 mg 07/27/23 09:00 Amlodipine 5 Mg Tab PO DAILY [facility] Aspirin 81 mg 07/27/23 09:00 Aspirin 81 Mg PO DAILY [facility] Heparin Sodium (Porcine) 0 unit 07/26/23 21:01 07/27/23 04:05 Heparin Sodium 1,000 Un/Ml (10ml Vl) IV 1,894 unit PER PROTOCOL PRN Administration Low PTT Protocol Diltiazem HCl 125 mg/ Sodium 125 mls @ 5 mls/hr 07/26/23 21:00 07/26/23 21:49 Chloride IV 5 mg/hr .Q24H [facility] 5 mls/hr Administration 5 MG/HR Heparin Sodium/Sodium Chloride 250 mls @ 9.09 mls/hr 07/26/23 21:15 07/27/23 04:02 25,000 unit/ Sodium Chloride IV 14 units/kg/hr .Q24H [facility] 10.605 mls/hr Titration Protocol 12 UNITS/KG/HR Loratadine 10 mg 07/27/23 09:00 Loratadine 10 Mg Tab PO DAILY [facility] Montelukast Sodium 10 mg 07/26/23 21:00 07/26/23 19:45 Montelukast 10 Mg Tab PO 10 mg HS [facility] Administration Nitroglycerin 0.4 mg 07/26/23 15:03 Nitroglycerin Sl Tabs 0.4 Mg Tab SUBLINGUAL Q5M PRN Chest Pain Intake and Output 0507/27/23 07/27/23 22:59 06:59 14:59 Intake Total 56.51 Balance 56.51 Intake: Intake, IV Titration 56.51 Amount Heparin Sod,Pork in 0.45% 56.51 NaCl 25,000 unit In 0.45 % NaCl 1 250ml.bag @ 12 UNITS/KG/HR 9.09 mls/hr IV .Q24H [facility] Rx#: [id number] Other: # Voids 1 1 Weight 75.75 kg 07/26/23 13:32 07/26/23 13:32
[2023-07-27 08:54] LABS: ALT 38 U/L (8-44); AST 35 U/L (13-35); Albumin 3.6 g/dL (3.8-4.9); Albumin/Globulin Ratio 1.57 Ratio (1.60-3.17); Alkaline Phosphatase 102 U/L (41-126); BUN/Creat Ratio 19.33 Ratio (12.00-20.00); Blood Urea Nitrogen 11.6 mg/dL (9.0-27.0); Calcium 8.8 mg/dL (8.7-10.3); Carbon Dioxide 23.5 mmol/L (21.6-31.8); Chloride 105 mmol/L (96-109); Globulin 2.3 g/dL (1.6-3.3); Glucose 186 mg/dL (70-110); LDL Cholesterol,Calculated 50.8 mg/dL (0.0-131.0); Magnesium 1.7 mg/dL (1.5-2.4); Potassium 3.1 mmol/L (3.5-5.5); Sodium 141 mmol/L (135-145); Total Bilirubin 0.6 mg/dL (0.3-1.2); Total Protein 5.9 g/dL (6.2-8.2)
[2023-07-27] MEDS ORDERED: ASPIRIN 325 MG TAB PO SCH (09:00)
[2023-07-27] MEDS ORDERED: ASPIRIN 81 MG PO SCH (09:00)
[2023-07-27] MEDS ORDERED: ENOXAPARIN 40 MG/0.4 ML SYRINGE SQ SCH (09:00)
[2023-07-27] MEDS: METOPROLOL TARTRATE 25 MG TAB PO SCH (09:20)
[2023-07-27] MEDS: LORATADINE 10 MG TAB PO SCH (09:20)
[2023-07-27] MEDS: APIXABAN 5 MG TAB PO SCH (09:20)
[2023-07-27] MEDS: amLODIPine 5 MG TAB PO SCH (09:20)
[2023-07-27] MEDS: POTASSIUM CHLORIDE ER 20 MEQ TAB.ER PO STA (12:07)
[2023-07-27 14:29] VITALS: RESP 16
[2023-07-27] MEDS ORDERED: DEXTROSE 50% SYRINGE 50 ML IVP PRN ×2 (15:58)
--- NOTE | 2023-07-27 16:01 | P.PN ---
Subjective Progress Note Date: 07/27/23 Hospital Course: 72-year-old Bulgarian-speaking female with history of hypertension, allergic rhi nitis presenting with chest pain. In the ED, temperature was 97.8, pulse 60, respiratory 18, blood pressure 141/83, saturating at 98% on room air. WBC 7.1, hemoglobin 14.7, platelet 265, sodium 135, potassium 3.6, creatinine 0.59, glucose 205, magnesium 1.5, AST 42, ALT 38, ALP 122, troponin negative, proBNP 37. EKG independently interpreted, shows normal sinus rhythm. Chest x-ray independently interpreted, shows no obvious opacities, report mention mild superior endplate deformity near the thoracolumbar junction new from 2020. Patient admitted for further chest pain workup. Cardiology consulted. Patient went into atrial fibrillation overnight, was started on heparin drip and Cardizem drip. Now switched to Eliquis and oral metoprolol. Echocardiogram pending. Subjective: Patient seen and examined at bedside. Overnight, patient was in atrial fibrillation, started on Cardizem drip Pertinent positives and negatives as discussed above, a complete review of systems was performed and all other systems are negative. Vitals Signs Reviewed. General: Nontoxic, no distress, appears at stated age, obese Derm: Warm, dry Head: Atraumatic, normocephalic, symmetric Eyes: EOMI, no lid lag, anicteric sclera Mouth: No lip lesion, mucus membranes moist Cardiovascular: S1S2 reg, no murmur Lungs: CTA bilateral, no rhonchi, no rales, no accessory muscle use Abdominal: Soft, nontender to palpation, no guarding, no appreciable organomegaly Ext: No gross muscle atrophy, no edema, no contractures Neuro: CN II-XI grossly intact, no focal neuro deficits Psych: Alert, oriented, appropriate affect Data Reviewed Today: Pertinent Labs: CBC unremarkable, potassium 3.1, magnesium 1.7, A1c 7.7, total cholesterol 130, LDL 50.8, triglycerides 279, TSH 0.496 Imaging: No new imaging Assessment and Plan: Active: Paroxysmal atrial fibrillation Chest pain, ACS ruled out Hypertension New diagnosis of type 2 diabetes Hypokalemia Hypomagnesemia resolved -Cardiology note reviewed, started on Eliquis 5 twice daily, metoprolol 25 twice daily, echocardiogram pending, outpatient stress test -Continue amlodipine 5 mg daily -Also started on sliding scale insulin, monitor for hypoglycemia, patient will need oral antidiabetic medications at the time of discharge -Given 40 mill equivalent of oral potassium today -Repeat BMP and magnesium tomorrow Resolved: Transaminitis Chronic: Allergic rhinitis DVT ppx: Eliquis Code status: Full code Anticipated discharge place: Pending clinical course Anticipated discharge time: Pending clinical course Objective - Vital Signs Vital signs: Vital Signs Temp 98.1 F 07/27/23 13:54 Pulse 101 H 07/27/23 13:54 Resp 16 07/27/23 13:54 BP 112/61 07/27/23 13:54 Pulse Ox 93 L 07/27/23 15:03 FiO2 Intake & Output 07/26/23 07/27/23 07/27/23 18:59 06:59 18:59 Intake Total 56.51 0 Balance 56.51 0 Weight 75.75 kg Intake: Intake, IV Titration 56.51 0 Amount Diltiazem 125 mg In 0 Sodium Chloride 0.9% 100 ml @ 5 MG/HR 5 mls/hr IV .Q24H [facility] Rx#:[id number] Heparin Sod,Pork in 0.45% 56.51 NaCl 25,000 unit In 0.45 % NaCl 1 250ml.bag @ 12 UNITS/KG/HR 9.09 mls/hr IV .Q24H [facility] Rx#: [id number] Other: # Voids 1 - Labs CBC & Chem 7: 07/27/23 02:57 07/27/23 02:57 Labs: Abnormal Lab Results - Last 24 Hours (Table) 07/27/23 07/27/23 07/27/23 Range/Units 02:57 02:57 02:57 APTT 35.6 H (22.0-30.0) sec Potassium 3.1 L (3.5-5.5) mmol/L Anion Gap 12.50 H (4.00-12.00) mmol/L Glucose 186 H (70-110) mg/dL Hemoglobin A1c 7.7 H (<=6.0) % Total Protein 5.9 L (6.2-8.2) g/dL Albumin 3.6 L (3.8-4.9) g/dL Albumin/Globulin Ratio 1.57 L (1.60-3.17) Ratio Triglycerides 279.00 H (0.00-149.00) mg/dL VLDL Cholesterol, Calc 55.80 H (5.00-40.00) mg/dL HDL Cholesterol 25.40 L (40.00-60.00) mg/dL
[2023-07-27 17:40] LABS: Glucose,Whole Blood 259 mg/dL (70-110)
[2023-07-27] MEDS: INSULIN ASPART (NovoLOG) 100 UNIT/ML VIAL SQ SCH (17:54)
--- NOTE | 2023-07-27 19:35 | CA ---
Transthoracic Echo Report Name: Nohemy Cordero Age: 72 Gender: F : 1950 Exam Date: 07/27/2023 08:17 Exam Location: [facility] Ht (in): 61 Wt (lb): 167 Ordering Physician: Obie Staton PAC Attending/Referring Phys: [id number], Shemar Custom Motorcycle Painter Olga Bruno RDCS Procedure CPT: Indications: Chest Pain Cardiac Hx: Technical Quality: Fair Contrast 1: Total Dose (mL): Contrast 2: Total Dose (mL): MEASUREMENTS (Male / Female) Normal Values 2D ECHO LV Diastolic Diameter PLAX 4.4 cm 4.2 - 5.9 / 3.9 - 5.3 cm LV Systolic Diameter PLAX 2.4 cm IVS Diastolic Thickness 0.8 cm 0.6 - 1.0 / 0.6 - 0.9 cm LVPW Diastolic Thickness 1.3 cm 0.6 - 1.0 / 0.6 - 0.9 cm LV Relative Wall Thickness 0.5 LVOT Diameter 1.9 cm DOPPLER MV Area PHT 3.1 cm??? Mitral E Point Velocity 80.2 cm/s Mitral A Point Velocity 98.5 cm/s Mitral E to A Ratio 0.8 MV Deceleration Time 244.3 ms FINDINGS Left Ventricle Left ventricular ejection fraction is estimated at 65-70 %. Left ventricular cavity size small. No obvious regional wall motion abnormalities. Right Ventricle Normal right ventricular size and function. Unable to estimate the right ventricular systolic pressure. Right Atrium Right atrium not well visualized. Left Atrium Normal left atrial size. Mitral Valve Structurally normal mitral valve. No evidence for mitral valve prolapse. No mitral stenosis. No mitral regurgitation. Aortic Valve Trileaflet aortic valve. No aortic valve stenosis or regurgitation. Tricuspid Valve Structurally normal tricuspid valve. Pulmonic Valve Pulmonic valve not well visualized. Pericardium No pericardial effusion. Aorta Normal size aortic root and proximal ascending aorta. CONCLUSIONS Normal LV systolic function Poorly visualized intracardiac valves The aortic valve is calcified with minimal gradient across it Previewed by: Dr. Ezequiel Jo MD (Electronically Signed) Final Date: 27 Jul 2023 19:34
[2023-07-27 20:31] LABS: Glucose,Whole Blood 308 mg/dL (70-110)
[2023-07-28 05:29] LABS: Glucose,Whole Blood 164 mg/dL (70-110)
[2023-07-28 08:19] VITALS: BP 107/71; PULSE 87; TEMP 98
--- NOTE | 2023-07-28 10:28 | P.PN ---
Subjective HISTORY OF PRESENT ILLNESS: This is a 72-year-old female with a past medical history significant for hypertension. 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 We have been asked to see the patient in consultation for chest pain. Patient examined at the bedside. Patient does not speak Yakut. Her family is present who speaks Sinhala and is able to translate for the patient. The patient presented to the hospital to chief complaint of chest pain for the past couple days. She denied any shortness of breath. Denied any palpitations. Patient did go into atrial fibrillation with RVR yesterday. She was started on IV heparin and IV Cardizem. She has since converted to sinus mechanism and is maintaining sinus mechanism this morning. She denies any history of atrial fibrillation. She denies any alcohol use or smoking. DIAGNOSTICS: - EKG reveals sinus mechanism with no signs of acute ischemia. Repeat EKG performed revealed A-fib with RVR. - Chest xray no acute cardiopulmonary process.. - Laboratory data: WBC 7.30. Hemoglobin 13.7. Platelet count 261. Sodium 135. Potassium 3.6. BUN 13. Creatinine 0.59. Troponin negative x 3. AST 42. ALT 38. - Current home cardiac medications include amlodipine 5 mg daily. 07/28/2023 Patient examined this morning at bedside. There is no family present. Patient is maintaining sinus mechanism with no further episodes of atrial fibrillation noted. She has been initiated on oral anticoagulation with Eliquis. Echocardiogram performed revealing preserved LV systolic function. Vital signs are stable. PHYSICAL EXAM: VITAL SIGNS: Reviewed. GENERAL: Well-developed in no acute distress. HEENT: Head is normocephalic. Pupils are equal, round. Sclerae anicteric. Mucous membranes of the mouth are moist. Neck supple. No JVD or thyromegaly LUNGS: Respirations even and unlabored. Lungs essentially clear to auscultation bilaterally. HEART: Regular rate and rhythm. S1 and S2 heard. ABDOMEN: Soft. Nondistended. Nontender. EXTREMITIES: Normal range of motion. No clubbing or cyanosis. Peripheral pulses intact. No lower extremity edema NEUROLOGIC: Awake and alert. Oriented x 3. ASSESSMENT: Chest pain, troponin negative x 3 New onset paroxysmal atrial fibrillation with RVR, currently maintaining sinus mechanism Hypertension Obesity: BMI 31.6 PLAN: Continue current cardiac medications Patient is stable for discharge home today from a cardiac standpoint Patient to follow-up outpatient with Dr. Jo Will plan for eventual outpatient stress testing We will sign off. Please reconsult if needed. Nurse practitioner note has been reviewed by physician. Signing provider agrees with the documented findings, assessment, and plan of care documented by V BLOCK SAW OPERATOR as a scribe. Objective - Vital Signs Vital signs: Vital Signs Temp 98.0 F 07/28/23 07:00 Pulse 87 07/28/23 07:00 Resp 16 07/28/23 07:00 BP 107/71 07/28/23 07:00 Pulse Ox 94 L 07/28/23 07:00 FiO2 Intake & Output 07/27/23 07/28/23 07/28/23 18:59 06:59 18:59 Intake Total 0 Balance 0 Intake: Intake, IV Titration 0 Amount Diltiazem 125 mg In 0 Sodium Chloride 0.9% 100 ml @ 5 MG/HR 5 mls/hr IV .Q24H COUNT INCLUDES THE [facility] Rx#:[id number] Other: # Voids 1 - Labs CBC & Chem 7: 07/27/23 02:57 07/27/23 02:57 Labs: Abnormal Lab Results - Last 24 Hours (Table) 07/27/23 07/27/23 07/28/23 Range/Units 17:37 20:28 05:26 POC Glucose (mg/dL) 259 H 308 H 164 H (70-110) mg/dL
--- NOTE | 2023-07-28 11:05 | P.DS ---
Providers Date of admission: 07/26/23 15:19 Expected date of discharge: 07/28/23 Attending physician: Rhoda Mercado DO Primary care physician: Delbert Cuevas Hospital Course: Discharge Diagnosis: Paroxysmal atrial fibrillation Chest pain, ACS ruled out Hypertension New diagnosis of type 2 diabetes Hypokalemia Hypomagnesemia Transaminitis Hospital Course: 72-year-old Chinese-speaking female with history of hypertension, allergic rhinitis presenting with chest pain. In the ED, temperature was 97.8, pulse 60, respiratory 18, blood pressure 141/83, saturating at 98% on room air. WBC 7.1, hemoglobin 14.7, platelet 265, sodium 135, potassium 3.6, creatinine 0.59, glucose 205, magnesium 1.5, AST 42, ALT 38, ALP 122, troponin negative, proBNP 37. EKG independently interpreted, shows normal sinus rhythm. Chest x-ray independently interpreted, shows no obvious opacities, report mention mild superior endplate deformity near the thoracolumbar junction new from 2020. Patient admitted for further chest pain workup. Cardiology consulted. Patient went into atrial fibrillation overnight, was started on heparin drip and Cardizem drip. Now switched to Eliquis and oral metoprolol. Echocardiogram showed normal LV systolic function. Also found to have new diagnosis of type 2 diabetes. Patient being discharged on oral metformin. Follow-up with cardiology for outpatient stress test. Patient seen and examined at bedside. Vital signs reviewed and stable. General: Nontoxic, no distress, appears at stated age, obese Derm: Warm, dry Head: Atraumatic, normocephalic, symmetric Eyes: EOMI, no lid lag, anicteric sclera Mouth: No lip lesion, mucus membranes moist Cardiovascular: S1S2 reg, no murmur Lungs: CTA bilateral, no rhonchi, no rales, no accessory muscle use Abdominal: Soft, nontender to palpation, no guarding, no appreciable organomegaly Ext: No gross muscle atrophy, no edema, no contractures Neuro: CN II-XI grossly intact, no focal neuro deficits Psych: Alert, oriented, appropriate affect A total of 33 minutes of time were spent preparing this complex discharge summary. Patient was discharged on 07/28/2023 at 1009. Patient Condition at Discharge: Stable Plan - Discharge Summary Discharge Rx Participant: No New Discharge Prescriptions: New Apixaban [Eliquis] 5 mg PO BID #90 tab metFORMIN HCL [Glucophage] 500 mg PO BID #90 tab Metoprolol Tartrate [Lopressor] 25 mg PO BID #90 tab Continue Montelukast [Singulair] 10 mg PO HS Fluticasone Nasal Ethel [Flonase Nasal Ethel] 1 spray EA NOSTRIL DAILY PRN PRN Reason: Allergy Symptoms Cetirizine HCl [Zyrtec] 10 mg PO DAILY amLODIPine [Norvasc] 5 mg PO DAILY Niacinamide B-3 100mg 100 mg PO DAILY Discharge Medication List Fluticasone Nasal Ethel [Flonase Nasal Ethel] 1 spray EA NOSTRIL DAILY PRN 12/23/20 [History] Montelukast [Singulair] 10 mg PO HS 12/23/20 [History] Cetirizine HCl [Zyrtec] 10 mg PO DAILY 07/26/23 [History] Niacinamide B-3 100mg 100 mg PO DAILY 07/26/23 [History] amLODIPine [Norvasc] 5 mg PO DAILY 07/26/23 [History] Apixaban [Eliquis] 5 mg PO BID #90 tab 07/28/23 [Rx] Metoprolol Tartrate [Lopressor] 25 mg PO BID #90 tab 07/28/23 [Rx] metFORMIN HCL [Glucophage] 500 mg PO BID #90 tab 07/28/23 [Rx] Follow up Appointment(s)/Referral(s): Ezequiel Jo MD [STAFF PHYSICIAN] - 1 Week Delbert Cuevas MD [Primary Care Provider] - 1-2 days Patient Instructions/Handouts: A-fib (Atrial Fibrillation) (DC), Mediterranean Diet (DC), Diabetes and Nutrition (DC), Diabetes and Exercise (DC), Type 2 Diabetes Management for Adults (DC) Activity/Diet/Wound Care/Special Instructions: Please see cardiology and PCP. Discharge Disposition: HOME SELF-CARE
[2023-07-28 11:11] LABS: BUN/Creat Ratio 17.67 Ratio (12.00-20.00); Blood Urea Nitrogen 10.6 mg/dL (9.0-27.0); Calcium 8.7 mg/dL (8.7-10.3); Carbon Dioxide 23.9 mmol/L (21.6-31.8); Chloride 108 mmol/L (96-109); Glucose 168 mg/dL (70-110); Magnesium 1.6 mg/dL (1.5-2.4); Potassium 3.9 mmol/L (3.5-5.5); Sodium 142 mmol/L (135-145)
== END 2023-07-28 11:27 | disposition home or self-care (01) ==
LOC: EC 11:39 → 6NMEDSUR 15:19
PROVIDERS: ADMIT Internal Medicine; ATTEND Internal Medicine
DX: R07.89 Other chest pain (principal); I48.0 Paroxysmal atrial fibrillation; I10 Essential (primary) hypertension; E11.9 Type 2 diabetes mellitus without complications; E87.6 Hypokalemia; E83.42 Hypomagnesemia; R74.01 Elevation of levels of liver transaminase levels; Z90.710 Acquired absence of both cervix and uterus; Z79.82 Long term (current) use of aspirin; Z68.31 Body mass index [BMI] 31.0-31.9, adult; Z79.899 Other long term (current) drug therapy
CPT/HCPCS: 96366 ×2; 96376; 96365; 96367; 96372; 99285; 36415; 94760; 93005; 93306; 83880; 80061; 80053 ×2; 80048; 84443; 83735 ×3; 84484; 85025 ×2; 85610 ×2; 85730 ×2; 83036 ×2; 71046; G0378 ×3; J1644 ×3; J3475

== ENCOUNTER → 2023-09-29 | Outpatient (CLI) | payer MEDICARE ==
--- NOTE | 2023-10-01 14:59 | MR ---
EXAMINATION TYPE: MR lumbar spine wo con DATE OF EXAM: 09/29/2023 COMPARISON: None HISTORY: Lower back pain, in the center. CONTRAST: 0 mL intravenous Gadavist. TECHNIQUE: Multiplanar, multisequence images of the lumbar spine were acquired. FINDINGS: For terminates at the L1-2 level. L5-S1: Disc height is preserved. There is disc desiccation. No focal disc herniation is evident. Mild facet hypertrophy is present. Neural foramen are patent. L4-L5: No focal disc herniation is evident. Minimal disc bulge may be present with mild anterior thec al sac contact. No AP spinal canal stenosis is present. Facet hypertrophy has mild ligamentum flavum laxity with posterior lateral thecal sac compression. No spinal canal stenosis or neural foraminal st enosis is present. L3-L4: No focal disc herniation or significant disc bulge is evident. Facet hypertrophy and ligamentu m flavum laxity has posterior lateral thecal sac compression. Inferior endplate changes of L3 are pre sent. There is mild narrowing of the right foramen. L2-L3: Facet hypertrophy and some ligamentum flavum laxity is posterior lateral thecal sac compressio n. No AP spinal canal stenosis is present. Neural foramen are patent. L1-L2: No significant disc bulge or disc herniation. No spinal canal stenosis. No foraminal stenosi s. . T12-L1: No significant disc bulge or disc herniation. No spinal canal stenosis. Foraminal stenosis present. There is some mild facet hypertrophy with left posterior lateral thecal sac compression. No cord deformity or spinal canal stenosis evident. There is a compression deformity at T12 with approx imately 50% loss of vertebral body height. No AP spinal canal stenosis is present.. IMPRESSION: 1. Compression deformity at T12 with 50% loss of superior vertebral body height. No posterior wall di splacement or spinal canal stenosis. 2. Scattered mild disc bulges, facet hypertrophy is some ligamentum flavum laxity. No spinal canal st enosis or significant foraminal narrowing.
== END | disposition home or self-care (01) ==
LOC: RADMRIMAIN 16:50
PROVIDERS: ATTEND Family Medicine
DX: S32.000A Wedge compression fracture of unspecified lumbar vertebra, initial encounter for closed fracture (principal); M51.26 Other intervertebral disc displacement, lumbar region; M47.816 Spondylosis without myelopathy or radiculopathy, lumbar region
CPT/HCPCS: 72148

== ENCOUNTER → 2024-10-02 | Outpatient (CLI) | payer MEDICARE ==
--- NOTE | 2024-10-02 15:26 | MM ---
Reason for Exam: Screening (asymptomatic). Last mammogram was performed 1 year(s) and 4 month(s) ago. Patient History: Menarche at age 12. First Full-Term at age 16. Hysterectomy at age 39. Postmenopausal. 2001, Benign Excisional Biopsy on the left side. Risk Values: Yesi 5 year model risk: 1.0%. NCI Lifetime model risk: 2.3%. Prior Study Comparison: 03/09/2021 Bilateral Screening Mammogram, [facility]. 05/21/2022 Bilateral MG 3D screening mammo w/cad, [facility]. 05/26/2023 Bilateral MG 3D screening mammo w/cad, [facility]. Tissue Density: The breasts are heterogeneously dense, which may obscure small masses. Findings: Analyzed By CAD. There is no suspicious group of microcalcifications or new suspicious mass in either breast. Overall Assessment: Benign, BI-RAD 2 Management: Screening Mammogram of both breasts in 1 year. . Patient should continue monthly self-breast exams. A clinical breast exam by your physician is recommended on an annual basis. This exam should not preclude additional follow-up of suspicious palpable abnormalities. Note on Yesi scores and lifetime risk: 1. A Yesi score greater than 3% is considered moderate risk. If this is the case, consider specialist referral to assess eligibility for a risk reducing agent. 2. If overall lifetime risk for the development of breast cancer is 20% or higher, the patient may qualify for future screening with alternating mammogram and breast MRI. [facility], , 10/02/2024 3:23 PM. Electronically signed and approved by: Declan Loya M.D. Radiologis
== END | disposition home or self-care (01) ==
LOC: RADMAMWWP 14:19
PROVIDERS: ATTEND Family Medicine
DX: Z12.31 Encounter for screening mammogram for malignant neoplasm of breast (principal); R92.333 Mammographic heterogeneous density, bilateral breasts; Z78.0 Asymptomatic menopausal state
CPT/HCPCS: 77063; 77067